=== PATIENT | female | born 1990 | race Caucasian/White ===

== ENCOUNTER 2017-01-02 14:56 | Emergency (ER) | payer MEDICAID, OTHER ==
[2017-01-02 15:06] VITALS: TEMP 98.4; O2SAT 99
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
[2017-01-02 16:03] VITALS: BP 135/70; PULSE 80; RESP 12
== END 2017-01-02 16:08 | disposition home or self-care (01) ==
DX: S42.214A Unspecified nondisplaced fracture of surgical neck of right humerus, initial encounter for closed fracture (principal); V03.10XA Pedestrian on foot injured in collision with car, pick-up truck or van in traffic accident, initial encounter; Y92.410 Unspecified street and highway as the place of occurrence of the external cause; Y99.8 Other external cause status; Y93.89 Activity, other specified
CPT/HCPCS: A4565